=== PATIENT | female | born 1955 | race Caucasian/White ===

== ENCOUNTER → 2018-01-28 06:03 | Outpatient (CLI) | payer MEDICARE | END | disposition home or self-care (01) | LOC: D.MAMMO 06:03 | DX: Z12.31 Encounter for screening mammogram for malignant neoplasm of breast (principal) ==

== ENCOUNTER 2021-01-10 19:00 | Outpatient (CLI) | payer MEDICARE ==
[2020-10-15 08:27] VITALS: BMI 39.5
[~2021-01-10 19:00] MED LIST: FLORAJEN3 CAPS460 MG PO; GABAPENTIN300 MG PO; HYDROCODON-ACE1 EA10 PO; HYDROCODONE-AC1 EAC2 PO; LEVOFLOXACIN500 MG PO; LISINOPRIL10 MG PO; MORPHINE SULFAT30 M4 PO; NICODERM CQ1 EAC3 TRANSDERM; PRAVASTATIN SOD10 MG PO
== END 2021-01-10 23:59 | disposition home or self-care (01) ==
LOC: D.MAMMO 19:00
PROVIDERS: ATTEND Family Medicine
DX: Z12.31 Encounter for screening mammogram for malignant neoplasm of breast (principal)